=== PATIENT | female | born 2000 | race Caucasian/White ===

== ENCOUNTER 2019-09-06 16:46 | Emergency (ER) | payer OTHER, MEDICAID ==
[~2019-09-06] VITALS: Ht 165.1 cm; Wt 67.1 kg
[2019-09-06 16:52] VITALS: BP 138/99
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
--- NOTE | 2019-09-06 17:08 | NUR ---
jesus alberto villatoro at bedside evaluating pt.
[2019-09-06] MEDS ORDERED: HYDROcodone/APAP 5/325 MG 1 TAB TAB PO ONE (17:10)
[2019-09-06] MEDS ORDERED: ONDANSETRON 4 MG ODT PO ONE (17:10)
--- NOTE | 2019-09-06 17:17 | NUR ---
pt went to ctscan via wheel chair ,pt was not able to void yet . Addendum: 09/06/19 at 1722 by [facility] pt was able to void.
--- NOTE | 2019-09-06 17:22 | NUR ---
xray at bedside
--- NOTE | 2019-09-06 17:28 | NUR ---
pt went to ct scan via wheel chair.
--- NOTE | 2019-09-06 17:34 | NUR ---
pt back from ct scan via wheelchiar , awake , alert.
--- NOTE | 2019-09-06 17:52 | NUR ---
jesus alberto villatoro re evaluating pt.
--- NOTE | 2019-09-06 17:54 | NUR ---
vlad melendez at bedside irrigating pt wounds.
[2019-09-06 18:13] VITALS: BP 138/88
--- NOTE | 2019-09-06 18:15 | NUR ---
Patient discharged with v/s stable. Written and verbal after care instructions given and explained regarding abrasion . Patient alert, oriented and verbalized understanding of instructions. Ambulatory with steady gait. All questions addressed prior to discharge. ID band removed. Patient advised to follow up with PMD. Rx of ibuprofen and flexeril given. Patient educated on indication of medication including possible reaction and side effects. Opportunity to ask questions provided and answered.Excuse from work given.
== END 2019-09-06 18:13 | disposition home or self-care (01) ==
LOC: MED 16:46
DX: S46.812A Strain of other muscles, fascia and tendons at shoulder and upper arm level, left arm, initial encounter (principal); S60.222A Contusion of left hand, initial encounter; S00.91XA Abrasion of unspecified part of head, initial encounter; R03.0 Elevated blood-pressure reading, without diagnosis of hypertension; R11.0 Nausea; Z88.0 Allergy status to penicillin; V89.2XXA Person injured in unspecified motor-vehicle accident, traffic, initial encounter; Y93.89 Activity, other specified; Y92.89 Other specified places as the place of occurrence of the external cause; Y99.8 Other external cause status
CPT/HCPCS: 70450; 73030; 73120; 81025; 90471; 90715; 99284; Q0092; Q0162

== ENCOUNTER 2022-10-03 19:39 | Emergency (ER) | payer SELFPAY ==
[~2022-10-03] VITALS: Ht 165.1 cm; Wt 77.1 kg
[2022-10-03 20:10] VITALS: BP 166/90
--- NOTE | 2022-10-03 20:13 | NUR ---
TO LOBBY A/W BED AMBULATORY
--- NOTE | 2022-10-03 21:13 | NUR ---
PT WALKED TO ROOM 8
[2022-10-03] MEDS ORDERED: LIDOCAINE MPF 2% 100 MG/5 ML VIAL INJ ONE (21:20)
[2022-10-03] MEDS ORDERED: LIDOCAINE 2% 100 MG/5 ML SYR IVP ONE ×2 (21:38→21:39)
[2022-10-03] MEDS ORDERED: LIDOCAINE MPF 1% 5 ML ONE (22:22)
[2022-10-03] MEDS ORDERED: TRANEXAMIC ACID 1,000 MG/10 ML VIAL MC ONE (23:50)
[2022-10-04] MEDS ORDERED: SILVER NITRATE APPLICATOR 1 EA SWAB TP ONE (02:04)
[2022-10-04] MEDS ORDERED: IBUP-2213 PO (02:47)
--- NOTE | 2022-10-04 03:01 | NUR ---
Patient discharged with v/s stable. Written and verbal after care instructions given and explained. Patient verbalized understanding. Ambulatory with steady gait. All questions addressed prior to discharge. Advised to follow up with PMD.
== END 2022-10-04 03:01 | disposition home or self-care (01) ==
LOC: MED 19:39
DX: S61.112A Laceration without foreign body of left thumb with damage to nail, initial encounter (principal); Z88.0 Allergy status to penicillin; Z79.899 Other long term (current) drug therapy; W26.0XXA Contact with knife, initial encounter; Y93.89 Activity, other specified; Y92.89 Other specified places as the place of occurrence of the external cause; Y99.8 Other external cause status
CPT/HCPCS: 11760; 99285; J2001; J3490; 11730; 99282; 99284

== ENCOUNTER 2022-10-13 18:06 | Emergency (ER) | payer SELFPAY ==
[~2022-10-13] VITALS: Ht 165.1 cm; Wt 79.4 kg
[~2022-10-13 18:06] MED LIST: IBUP-2213 PO
[2022-10-13 18:22] VITALS: BP 141/85
[2022-10-13] MEDS ORDERED: LIDOCAINE MPF 1% 10 MG/ML VIAL INJ ONE (19:15)
--- NOTE | 2022-10-13 19:35 | NUR ---
Pt to bed 12
--- NOTE | 2022-10-13 19:40 | NUR ---
ER physician at bedside performing procedure, patient tolerating procedure well.
--- NOTE | 2022-10-13 19:40 | NUR ---
Patient resting in bed, A/Ox4, chest rise and fall symmetrical, no s/s of distress, on monitor.
[2022-10-13] MEDS ORDERED: BACITRACIN OINT 500 UNITS/GM PKT TP ONE (19:53)
[2022-10-13] MEDS ORDERED: BACI-416 TP (19:59)
[2022-10-13 20:30] VITALS: BP 124/85
== END 2022-10-13 20:30 | disposition home or self-care (01) ==
LOC: MED 18:06
DX: S61.012D Laceration without foreign body of left thumb without damage to nail, subsequent encounter (principal); Z88.0 Allergy status to penicillin; Z79.899 Other long term (current) drug therapy; X58.XXXD Exposure to other specified factors, subsequent encounter
CPT/HCPCS: 99281; J2001